=== PATIENT | male | born 1990 | race Caucasian/White ===

== ENCOUNTER 2019-12-10 17:28 | Inpatient (IN) ==
[2019-12-10] MEDS ORDERED: 0.9 % Sodium Chloride 1,000 ML IV ONE (21:26)
[2019-12-11] MEDS ORDERED: Naloxone 0.4 MG/ML INJ IVP PRN (00:41)
[2019-12-11] MEDS ORDERED: 0.9 % Sodium Chloride 1,000 ML IVC SCH (00:45)
[2019-12-11] MEDS ORDERED: Acetaminophen 325 MG TABLET PO PRN ×2 (00:46→01:04)
[2019-12-11] MEDS ORDERED: *HR* FentaNYL (PF) 100 MCG/2 ML VIAL IVP STA (01:02)
[2019-12-11] MEDS ORDERED: Calcium Gluconate 2,000 MG in D5% in Water 100 ML IVPB ONE (01:12)
[2019-12-11] MEDS: 0.9 % Sodium Chloride 1,000 ML IVC SCH ×2 (01:23→08:02)
[2019-12-11] MEDS: Calcium Gluconate 1gm/50mL 1 GM/50 ML BAG IVPB SCH ×2 (01:53→02:55)
[2019-12-11 04:02] LABS: Basophils % 0.1 %; Eosinophils # 0.1 K/mcL (0.0-0.6); Eosinophils % 0.5 %; Hematocrit 36.9 % (37.5-50.1); Hemoglobin 12.8 g/dL (12.9-16.9); Immature Granulocytes % 0.3 % (0-4); Lymphocytes # 2.9 K/mcL (0.6-4.6); Lymphocytes % 25.5 %; Mean Corpuscular HGB Conc 34.7 g/dL (31.6-35.5); Mean Corpuscular Hemoglobin 34.1 pg (28.0-33.3); Mean Corpuscular Volume 98.4 fL (83.0-100.0); Mean Platelet Volume 9.9 fL (9.4-12.4); Monocytes # 1.3 K/mcL (0.0-1.3); Monocytes % 11.4 %; Neutrophils # 7.2 K/mcL (1.6-8.9); Platelet Count 176 K/mcL (140-400); Red Blood Count 3.75 M/mcL (4.19-5.50); Red Cell Distribution Width 12.3 % (11.5-14.5); Segmented Neutrophils % 62.2 %; White Blood Count 11.5 K/mcL (4.3-11.1)
[2019-12-11 04:29] LABS: Phosphorous 2.5 mg/dL (2.7-4.5)
[2019-12-11 04:43] LABS: BUN/Creatinine Ratio 15 (6-26); Blood Urea Nitrogen 13 mg/dL (6-20); Calcium 8.3 mg/dL (8.6-10.3); Carbon Dioxide 20 mEq/L (23-29); Chloride 113 mEq/L (98-107); Creatine Kinase 14882 Units/L (30-223); Glucose 123 mg/dL (70-105); Osmolality,Calculated 287 (280-300); Potassium 3.4 mEq/L (3.5-5.1); Sodium 138 mEq/L (136-145); eGFR For African Americans > 60 (> 60); eGFR For Non-African Americans > 60 (> 60)
[2019-12-11] MEDS: *HR* FentaNYL (PF) 100 MCG/2 ML VIAL IVP PRN ×2 (08:09→15:32)
[2019-12-11] MEDS: Nicotine 14 MG PATCH.TD24 TD SCH (21:49)
[2019-12-11] MEDS: QUEtiapine Fumarate 100 MG TABLET PO SCH (21:49)
[2019-12-12 01:23] LABS: Basophils % 0.3 %; Eosinophils # 0.1 K/mcL (0.0-0.6); Eosinophils % 1.3 %; Hemoglobin 12.2 g/dL (12.9-16.9); Immature Granulocytes % 0.2 % (0-4); Lymphocytes % 42.6 %; Mean Corpuscular HGB Conc 33.9 g/dL (31.6-35.5); Mean Corpuscular Hemoglobin 33.8 pg (28.0-33.3); Mean Corpuscular Volume 99.7 fL (83.0-100.0); Mean Platelet Volume 10.6 fL (9.4-12.4); Monocytes # 1.1 K/mcL (0.0-1.3); Monocytes % 11.4 %; Neutrophils # 4.2 K/mcL (1.6-8.9); Platelet Count 161 K/mcL (140-400); Red Blood Count 3.61 M/mcL (4.19-5.50); Red Cell Distribution Width 12.4 % (11.5-14.5); Segmented Neutrophils % 44.2 %; White Blood Count 9.4 K/mcL (4.3-11.1)
[2019-12-12 01:41] LABS: Magnesium 1.7 mg/dL (1.6-2.6); Phosphorous 2.9 mg/dL (2.7-4.5)
[2019-12-12 02:00] LABS: Alanine Aminotransferase 84 Units/L (7-52); Albumin 3.4 g/dL (3.5-5.7); Albumin/Globulin Ratio 2.1 (1.1-2.2); Alkaline Phosphatase 39 Units/L (34-104); Aspartate Amino Transferase 155 Units/L (13-39); BUN/Creatinine Ratio 13 (6-26); Bilirubin,Total 0.4 mg/dL (0.3-1.0); Blood Urea Nitrogen 12 mg/dL (6-20); Calcium 8.3 mg/dL (8.6-10.3); Carbon Dioxide 24 mEq/L (23-29); Chloride 105 mEq/L (98-107); Creatine Kinase 8625 Units/L (30-223); Globulin 1.6 g/dL (2.4-3.5); Glucose 125 mg/dL (70-105); Osmolality,Calculated 287 (280-300); Potassium 3.4 mEq/L (3.5-5.1); Sodium 138 mEq/L (136-145); eGFR For African Americans > 60 (> 60); eGFR For Non-African Americans > 60 (> 60)
[2019-12-12] MEDS ORDERED: 0.9 % Sodium Chloride w KCl 40 MEQ/1,000 ML MLS IVC SCH (07:30)
[2019-12-12 09:37] LABS: Hepatitis B Surface Antigen Nonreactive (Nonreactive)
[2019-12-12 10:06] LABS: Hepatitis C Virus Antibody Nonreactive (Nonreactive)
[2019-12-12 10:07] LABS: Hepatitis B Core IgM Nonreactive (Nonreactive)
[2019-12-12 10:08] LABS: Hepatitis A Antibody IgM Nonreactive (Nonreactive)
[2019-12-12] MEDS: QUEtiapine Fumarate 100 MG TABLET PO SCH (22:05)
[2019-12-12] MEDS: Nicotine 14 MG PATCH.TD24 TD SCH (22:05)
[2019-12-13 03:33] LABS: BUN/Creatinine Ratio 22 (6-26); Blood Urea Nitrogen 15 mg/dL (6-20); Calcium 9.3 mg/dL (8.6-10.3); Carbon Dioxide 28 mEq/L (23-29); Chloride 104 mEq/L (98-107); Glucose 100 mg/dL (70-105); Magnesium 1.9 mg/dL (1.6-2.6); Osmolality,Calculated 287 (280-300); Phosphorous 4.4 mg/dL (2.7-4.5); Potassium 3.7 mEq/L (3.5-5.1); Sodium 138 mEq/L (136-145); eGFR For African Americans > 60 (> 60); eGFR For Non-African Americans > 60 (> 60)
[2019-12-13] MEDS: Gabapentin 300 MG CAPSULE PO SCH ×3 (12:17→19:54)
[2019-12-13] MEDS: Nicotine 14 MG PATCH.TD24 TD SCH (22:23)
[2019-12-13] MEDS: QUEtiapine Fumarate 100 MG TABLET PO SCH (22:23)
[2019-12-14] MEDS: Gabapentin 300 MG CAPSULE PO SCH ×3 (08:24→22:35)
[2019-12-14] MEDS: *HR* FentaNYL (PF) 100 MCG/2 ML VIAL IVP PRN (12:53)
[2019-12-14] MEDS: Nicotine 14 MG PATCH.TD24 TD SCH (22:34)
[2019-12-14] MEDS: QUEtiapine Fumarate 100 MG TABLET PO SCH (22:35)
[2019-12-15 08:22] LABS: Hematocrit 44.5 % (37.5-50.1); Mean Corpuscular HGB Conc 35.3 g/dL (31.6-35.5); Mean Corpuscular Hemoglobin 34.1 pg (28.0-33.3); Mean Corpuscular Volume 96.7 fL (83.0-100.0); Platelet Count 207 K/mcL (140-400); Red Cell Distribution Width 11.9 % (11.5-14.5); White Blood Count 6.6 K/mcL (4.3-11.1)
[2019-12-15 08:23] LABS: Hemoglobin 15.7 g/dL (12.9-16.9)
[2019-12-15 08:40] LABS: BUN/Creatinine Ratio 18 (6-26); Blood Urea Nitrogen 17 mg/dL (6-20); Calcium 9.4 mg/dL (8.6-10.3); Carbon Dioxide 31 mEq/L (23-29); Chloride 102 mEq/L (98-107); Glucose 101 mg/dL (70-105); Osmolality,Calculated 292 (280-300); Sodium 140 mEq/L (136-145); eGFR For African Americans > 60 (> 60); eGFR For Non-African Americans > 60 (> 60)
[2019-12-15] MEDS: Gabapentin 300 MG CAPSULE PO SCH ×2 (09:07→15:55)
[2019-12-15 14:48] VITALS: BP 129/65
[2019-12-15] MEDS ORDERED: FLU Vac QV 19-20 (6Month+)/PF 0.5 ML SYRINGE IM ONE (17:57)
== END 2019-12-15 17:00 | disposition home or self-care (01) | DRG 885 ==
LOC: EMEROOARM 17:28 → 2NENU 17:28 → SUATTDRO 22:40 → 2NENU 23:47 → SUATTDRO 12-12 16:18
PROVIDERS: ADMIT Internal Medicine; ATTEND Family Medicine

== ENCOUNTER 2021-08-25 21:58 | Inpatient (IN) ==
[2021-08-26] MEDS ORDERED: Ondansetron ODT 4 MG TAB.RAPDIS SL PRN (02:06)
[2021-08-26] MEDS ORDERED: Naloxone 0.4 MG/ML INJ IVP PRN (02:06)
[2021-08-26] MEDS ORDERED: Acetaminophen 325 MG TABLET PO PRN (02:06)
[2021-08-26] MEDS ORDERED: *HR* OxyCODONE Immed Rel 5 MG TABLET PO PRN (02:06)
[2021-08-26 04:30] LABS: Hematocrit 29.6 % (37.5-50.1); Hemoglobin 10.4 g/dL (12.9-16.9); Mean Corpuscular HGB Conc 35.1 g/dL (31.6-35.5); Mean Corpuscular Hemoglobin 32.2 pg (28.0-33.3); Mean Corpuscular Volume 91.6 fL (83.0-100.0); Mean Platelet Volume 9.6 fL (9.4-12.4); Platelet Count 284 K/mcL (140-400); Red Blood Count 3.23 M/mcL (4.19-5.50); Red Cell Distribution Width 12.4 % (11.5-14.5); White Blood Count 11.7 K/mcL (4.3-11.1)
[2021-08-26 04:46] LABS: Alanine Aminotransferase 28 Units/L (7-52); Albumin 2.3 g/dL (3.5-5.7); Albumin/Globulin Ratio 0.9 (1.1-2.2); Alkaline Phosphatase 46 Units/L (34-104); Aspartate Amino Transferase 20 Units/L (13-39); BUN/Creatinine Ratio 12 (6-26); Bilirubin,Total 0.9 mg/dL (0.3-1.0); Blood Urea Nitrogen 7 mg/dL (6-20); Calcium 7.2 mg/dL (8.6-10.3); Carbon Dioxide 32 mEq/L (23-29); Chloride 93 mEq/L (98-107); Globulin 2.6 g/dL (2.4-3.5); Glucose 137 mg/dL (70-105); Lactate Dehydrogenase 100 Units/L (140-271); Magnesium 2.1 mg/dL (1.6-2.6); Osmolality,Calculated 272 (280-300); Phosphorous 2.6 mg/dL (2.7-4.5); Potassium 2.7 mEq/L (3.5-5.1); Sodium 131 mEq/L (136-145); Total Protein 4.9 g/dL (6.4-8.9); eGFR For African Americans > 60 (> 60); eGFR For Non-African Americans > 60 (> 60)
[2021-08-26] MEDS ORDERED: *HR* Heparin 5,000 UNIT/ML VIAL SQ SCH (06:00)
[2021-08-26] MEDS ORDERED: Potassium Chloride 40 MEQ, Lidocaine 1% 2 ML in 0.9 % Sodium Chloride 500 ML IVPB ONE (06:31)
[2021-08-26 07:11] LABS: Adenovirus F 40/41 PCR Not detected (Not detect); Astrovirus PCR Not detected (Not detect); C.difficile Toxin A/B Gene PCR Not detected (Not detect); Campylobacter by PCR Not detected (Not detect); Cryptosporidium by PCR Not detected (Not detect); Cyclospora cayetanensis PCR Not detected (Not detect); E. coli O157 by PCR Not detected (Not detect); Entamoeba histolytica PCR Not detected (Not detect); Enteroaggregative E.coli(EAEC) Not detected (Not detect); Enteropathogenic E.coli(EPEC) Not detected (Not detect); Enterotoxigenic E.coli (ETEC) Not detected (Not detect); Giardia lamblia PCR Not detected (Not detect); Norovirus GI/GII PCR Not detected (Not detect); Plesiomonas shigelloides PCR Not detected (Not detect); Rotavirus A PCR Not detected (Not detect); Salmonella PCR Not detected (Not detect); Sapovirus PCR Not detected (Not detect); Shig/EnteroinvasiveE coli EIEC Not detected (Not detect); Shigalike tox-prod E coli STEC Not detected (Not detect); Vibrio PCR Not detected (Not detect); Vibrio cholerae PCR Not detected (Not detect); Yersinia enterocolitica PCR Not detected (Not detect)
[2021-08-26] MEDS ORDERED: Gadolinium Contrast Agent (WT Based) IV PRN ×2 (07:14→10:45)
[2021-08-26] MEDS ORDERED: 0.9 % Sodium Chloride w KCl 20 MEQ/1,000 ML MLS IVC SCH (07:15)
[2021-08-26 07:37] LABS: Lymphocytes # 1.4 K/mcL (0.6-4.6); Monocytes # 0.5 K/mcL (0.0-1.3); Neutrophils # 9.8 K/mcL (1.6-8.9); Platelet Estimate Normal (Normal)
[2021-08-26] MEDS ORDERED: 0.9 % Sodium Chloride 1,000 ML IVC ONE (10:02)
[2021-08-26 11:21] LABS: Hematocrit 29.9 % (37.5-50.1); Hemoglobin 10.2 g/dL (12.9-16.9)
[2021-08-26] MEDS: *HR* OxyCODONE Immed Rel 5 MG TABLET PO PRN (12:09)
[2021-08-26 12:17] LABS: Hepatitis B Surface Antigen Nonreactive (Nonreactive)
[2021-08-26 12:46] LABS: Hepatitis C Virus Antibody Nonreactive (Nonreactive)
[2021-08-26 12:49] LABS: Hepatitis A Antibody IgM Nonreactive (Nonreactive)
[2021-08-26] MEDS: 0.9 % Sodium Chloride w KCl 20 MEQ/1,000 ML MLS IVC SCH (14:06)
[2021-08-26] MEDS ORDERED: *HR* OxyCODONE Immed Rel 5 MG TABLET PO ONE (20:15)
[2021-08-27] MEDS: *HR* OxyCODONE Immed Rel 5 MG TABLET PO PRN ×4 (02:21→23:05)
[2021-08-27 06:07] LABS: Hematocrit 28.9 % (37.5-50.1); Hemoglobin 9.7 g/dL (12.9-16.9); Mean Corpuscular HGB Conc 33.6 g/dL (31.6-35.5); Mean Corpuscular Hemoglobin 31.1 pg (28.0-33.3); Mean Corpuscular Volume 92.6 fL (83.0-100.0); Mean Platelet Volume 9.2 fL (9.4-12.4); Monocytes # 1.1 K/mcL (0.0-1.3); Platelet Count 261 K/mcL (140-400); Red Blood Count 3.12 M/mcL (4.19-5.50); Red Cell Distribution Width 12.4 % (11.5-14.5); White Blood Count 7.6 K/mcL (4.3-11.1)
[2021-08-27 06:28] LABS: Alanine Aminotransferase 29 Units/L (7-52); Albumin 2.2 g/dL (3.5-5.7); Albumin/Globulin Ratio 0.9 (1.1-2.2); Alkaline Phosphatase 43 Units/L (34-104); Aspartate Amino Transferase 25 Units/L (13-39); BUN/Creatinine Ratio 6 (6-26); Bilirubin,Direct 0.3 mg/dL (0.0-0.2); Bilirubin,Indirect 0.5 mg/dL (0.0-1.0); Bilirubin,Total 0.8 mg/dL (0.3-1.0); Blood Urea Nitrogen 3 mg/dL (6-20); Carbon Dioxide 29 mEq/L (23-29); Chloride 95 mEq/L (98-107); Globulin 2.5 g/dL (2.4-3.5); Glucose 107 mg/dL (70-105); Magnesium 1.8 mg/dL (1.6-2.6); Osmolality,Calculated 269 (280-300); Potassium 2.8 mEq/L (3.5-5.1); Sodium 131 mEq/L (136-145); Total Protein 4.7 g/dL (6.4-8.9); eGFR For African Americans > 60 (> 60); eGFR For Non-African Americans > 60 (> 60)
[2021-08-27 06:43] LABS: Lymphocytes # 1.2 K/mcL (0.6-4.6); Neutrophils # 5.3 K/mcL (1.6-8.9)
[2021-08-27 06:44] LABS: Anisocytosis 1+ (Not Present); Platelet Estimate Normal (Normal)
[2021-08-27] MEDS: cefTRIAXone 2,000 MG in 0.9 % Sodium Chloride Mini Bag 100 ML IVPB SCH (08:26)
[2021-08-27 08:58] LABS: C-Reactive Protein 224 mg/L (Less than 10)
[2021-08-27] MEDS ORDERED: Morphine Sulfate 2 MG/ML SYRINGE IVP PRN (09:49)
[2021-08-27] MEDS ORDERED: Simethicone 80 MG TAB.CHEW PO PRN (12:26)
[2021-08-27] MEDS: MetroNIDAZOLE 500 MG/100 ML 500 MG/100 ML BAG IVPB SCH ×3 (12:56→23:04)
[2021-08-27] MEDS: Morphine Sulfate 2 MG/ML SYRINGE IVP PRN ×2 (16:52→21:16)
[2021-08-27] MEDS: 0.9 % Sodium Chloride w KCl 20 MEQ/1,000 ML MLS IVC SCH (19:14)
[2021-08-28] MEDS: Morphine Sulfate 2 MG/ML SYRINGE IVP PRN (02:14)
[2021-08-28] MEDS ORDERED: 0.9 % Sodium Chloride 1,000 ML IVC ONE (04:13)
[2021-08-28] MEDS ORDERED: Ketorolac 30 MG/ML VIAL IVP ONE ×2 (04:15→10:06)
[2021-08-28 05:33] LABS: Hematocrit 27.8 % (37.5-50.1); Hemoglobin 9.3 g/dL (12.9-16.9); Mean Corpuscular HGB Conc 33.5 g/dL (31.6-35.5); Mean Corpuscular Hemoglobin 31.3 pg (28.0-33.3); Mean Corpuscular Volume 93.6 fL (83.0-100.0); Mean Platelet Volume 9.1 fL (9.4-12.4); Platelet Count 229 K/mcL (140-400); Red Blood Count 2.97 M/mcL (4.19-5.50); Red Cell Distribution Width 12.7 % (11.5-14.5); White Blood Count 7.6 K/mcL (4.3-11.1)
[2021-08-28 05:53] LABS: Alanine Aminotransferase 27 Units/L (7-52); Albumin 2.1 g/dL (3.5-5.7); Albumin/Globulin Ratio 0.9 (1.1-2.2); Alkaline Phosphatase 44 Units/L (34-104); Aspartate Amino Transferase 20 Units/L (13-39); BUN/Creatinine Ratio 7 (6-26); Bilirubin,Direct 0.3 mg/dL (0.0-0.2); Bilirubin,Indirect 0.4 mg/dL (0.0-1.0); Bilirubin,Total 0.7 mg/dL (0.3-1.0); Blood Urea Nitrogen 4 mg/dL (6-20); Calcium 7.1 mg/dL (8.6-10.3); Carbon Dioxide 32 mEq/L (23-29); Chloride 98 mEq/L (98-107); Globulin 2.4 g/dL (2.4-3.5); Glucose 140 mg/dL (70-105); Magnesium 1.7 mg/dL (1.6-2.6); Osmolality,Calculated 279 (280-300); Potassium 2.9 mEq/L (3.5-5.1); Sodium 135 mEq/L (136-145); Total Protein 4.5 g/dL (6.4-8.9); eGFR For African Americans > 60 (> 60); eGFR For Non-African Americans > 60 (> 60)
[2021-08-28 06:02] LABS: Toxic Granulation Present (Not Present)
[2021-08-28 06:03] LABS: Lymphocytes # 1.1 K/mcL (0.6-4.6); Monocytes # 0.5 K/mcL (0.0-1.3); Neutrophils # 6.1 K/mcL (1.6-8.9)
[2021-08-28 06:04] LABS: Anisocytosis 1+ (Not Present); Polychromasia 1+ (Not Present)
[2021-08-28 06:07] LABS: Platelet Estimate Normal (Normal)
[2021-08-28 06:17] LABS: Folate 7.1 ng/mL (3.0-16.0)
[2021-08-28 06:20] LABS: Ferritin 1019 ng/mL (20-250); Iron < 10 mcg/dL (65-175); Transferrin < 75 mg/dL (203-362)
[2021-08-28] MEDS: cefTRIAXone 2,000 MG in 0.9 % Sodium Chloride Mini Bag 100 ML IVPB SCH (07:50)
[2021-08-28] MEDS: MetroNIDAZOLE 500 MG/100 ML 500 MG/100 ML BAG IVPB SCH ×2 (07:51→16:46)
[2021-08-28] MEDS ORDERED: Acetaminophen IV 1,000 MG/100 ML BAG IVPB ONE ×2 (08:00→20:19)
[2021-08-28] MEDS: 0.9 % Sodium Chloride w KCl 40 MEQ/1,000 ML MLS IVC SCH ×2 (08:40→20:29)
[2021-08-28] MEDS ORDERED: methylPREDNISolone 125 MG/2 ML VIAL IVP ONE (11:18)
[2021-08-28] MEDS ORDERED: Isovue-370 500 ML BOTTLE IVP ONE (17:03)
[2021-08-28] MEDS: 0.9 % Sodium Chloride w KCl 20 MEQ/1,000 ML MLS IVC SCH ×2 (23:00→23:01)
[2021-08-29] MEDS: MetroNIDAZOLE 500 MG/100 ML 500 MG/100 ML BAG IVPB SCH ×2 (00:14→07:58)
[2021-08-29 01:27] LABS: Hematocrit 29.2 % (37.5-50.1); Hemoglobin 9.7 g/dL (12.9-16.9); Mean Corpuscular HGB Conc 33.2 g/dL (31.6-35.5); Mean Corpuscular Hemoglobin 30.7 pg (28.0-33.3); Mean Corpuscular Volume 92.4 fL (83.0-100.0); Mean Platelet Volume 9.4 fL (9.4-12.4); Platelet Count 246 K/mcL (140-400); Red Blood Count 3.16 M/mcL (4.19-5.50); Red Cell Distribution Width 12.6 % (11.5-14.5)
[2021-08-29 01:46] LABS: Alanine Aminotransferase 20 Units/L (7-52); Albumin 1.9 g/dL (3.5-5.7); Albumin/Globulin Ratio 0.8 (1.1-2.2); Alkaline Phosphatase 46 Units/L (34-104); Aspartate Amino Transferase 10 Units/L (13-39); BUN/Creatinine Ratio 19 (6-26); Bilirubin,Direct 0.1 mg/dL (0.0-0.2); Bilirubin,Indirect 0.2 mg/dL (0.0-1.0); Bilirubin,Total 0.3 mg/dL (0.3-1.0); Blood Urea Nitrogen 9 mg/dL (6-20); C-Reactive Protein 219 mg/L (Less than 10); Calcium 6.9 mg/dL (8.6-10.3); Carbon Dioxide 24 mEq/L (23-29); Chloride 105 mEq/L (98-107); Globulin 2.5 g/dL (2.4-3.5); Glucose 182 mg/dL (70-105); Lipase 6 Units/L (11-82); Magnesium 1.7 mg/dL (1.6-2.6); Osmolality,Calculated 283 (280-300); Potassium 3.8 mEq/L (3.5-5.1); Sodium 135 mEq/L (136-145); Total Protein 4.4 g/dL (6.4-8.9); eGFR For African Americans > 60 (> 60); eGFR For Non-African Americans > 60 (> 60)
[2021-08-29 01:56] LABS: Anisocytosis 1+ (Not Present); Lymphocytes # 0.2 K/mcL (0.6-4.6); Neutrophils # 8.8 K/mcL (1.6-8.9); Platelet Estimate Normal (Normal); Toxic Granulation Present (Not Present); Toxic Vacuolation Present (Not Present)
[2021-08-29] MEDS: 0.9 % Sodium Chloride w KCl 40 MEQ/1,000 ML MLS IVC SCH (04:50)
[2021-08-29] MEDS: *HR* OxyCODONE Immed Rel 5 MG TABLET PO PRN (07:58)
[2021-08-29] MEDS ORDERED: methylPREDNISolone 125 MG/2 ML VIAL IVP SCH (08:00)
[2021-08-29 08:15] LABS: Adenovirus F 40/41 PCR Not detected (Not detect); Astrovirus PCR Not detected (Not detect); C.difficile Toxin A/B Gene PCR Not detected (Not detect); Campylobacter by PCR Not detected (Not detect); Cryptosporidium by PCR Not detected (Not detect); Cyclospora cayetanensis PCR Not detected (Not detect); E. coli O157 by PCR Not detected (Not detect); Entamoeba histolytica PCR Not detected (Not detect); Enteroaggregative E.coli(EAEC) Not detected (Not detect); Enteropathogenic E.coli(EPEC) Not detected (Not detect); Enterotoxigenic E.coli (ETEC) Not detected (Not detect); Giardia lamblia PCR Not detected (Not detect); Norovirus GI/GII PCR Not detected (Not detect); Plesiomonas shigelloides PCR Not detected (Not detect); Rotavirus A PCR Not detected (Not detect); Salmonella PCR Not detected (Not detect); Sapovirus PCR Not detected (Not detect); Shig/EnteroinvasiveE coli EIEC Not detected (Not detect); Shigalike tox-prod E coli STEC Not detected (Not detect); Vibrio PCR Not detected (Not detect); Vibrio cholerae PCR Not detected (Not detect); Yersinia enterocolitica PCR Not detected (Not detect)
[2021-08-29] MEDS: Morphine Sulfate 2 MG/ML SYRINGE IVP PRN (10:04)
[2021-08-29 11:30] VITALS: BP 100/63; PULSE 90; TEMP 97.5; O2SAT 97
[2021-08-29] MEDS ORDERED: *HR* OxyCODONE/APAP 10/325 TABLET PO ONE (14:26)
[2021-08-31 10:51] LABS: HSV 1 Glycoprotein G IgG 0.18 IV (<=0.89); HSV 2 Glycoprotein G IgG 6.69 IV (<=0.89)
== END 2021-08-29 18:13 | disposition home or self-care (01) | DRG 871 ==
LOC: 4WAOSI → SUATTDRO 08-26 01:11 → 3BNU 08-28 16:12
PROVIDERS: ADMIT Internal Medicine; ATTEND Pharmacist

== ENCOUNTER 2022-01-31 01:38 | Inpatient (IN) ==
[2022-01-31 02:49] LABS: Influenza A PCR Negative (Negative); Influenza B PCR Negative (Negative); Resp. Syncytial Virus PCR Negative (Negative); SARS-CoV-2 by PCR (In House) Negative (Negative)
[2022-01-31] MEDS ORDERED: haloperidoL 5 MG TABLET PO PRN (03:46)
[2022-01-31] MEDS ORDERED: Acetaminophen 325 MG TABLET PO PRN (03:46)
[2022-01-31] MEDS ORDERED: *HR* LORazepam 1 MG TABLET PO PRN (04:00)
[2022-01-31] MEDS ORDERED: Haloperidol Lactate 5 MG/ML VIAL IM PRN (04:00)
[2022-01-31] MEDS ORDERED: *HR* LORazepam 2 MG/ML VIAL IM PRN (04:00)
[2022-01-31] MEDS ORDERED: Mag Hydrox/Al Hydrox/Simeth 30 ML UDC PO PRN (08:07)
[2022-01-31] MEDS ORDERED: MOM Conc 10 ML UD.LIQ PO PRN (08:07)
[2022-01-31] MEDS: OLANZapine 10 MG TAB.RAPDIS PO SCH (21:44)
[2022-01-31] MEDS: OXcarbazepine 150 MG TABLET PO SCH (21:44)
[2022-02-01] MEDS: OXcarbazepine 150 MG TABLET PO SCH ×2 (10:22→20:23)
[2022-02-01] MEDS: OLANZapine 10 MG TAB.RAPDIS PO SCH (20:23)
[2022-02-01] MEDS: traZODone 50 MG TABLET PO PRN (20:24)
[2022-02-02] MEDS: OXcarbazepine 150 MG TABLET PO SCH ×2 (08:18→20:49)
[2022-02-02] MEDS: hydrOXYzine pamoate 25 MG CAPSULE PO PRN (10:21)
[2022-02-02] MEDS: Nicotine 2 MG GUM BC PRN (12:34)
[2022-02-02] MEDS: traZODone 50 MG TABLET PO PRN (20:49)
[2022-02-02] MEDS: OLANZapine 10 MG TAB.RAPDIS PO SCH (20:49)
[2022-02-03] MEDS: OXcarbazepine 150 MG TABLET PO SCH ×2 (08:12→20:19)
[2022-02-03] MEDS: Nicotine 2 MG GUM BC PRN (12:42)
[2022-02-03] MEDS: OLANZapine 10 MG TAB.RAPDIS PO SCH (20:19)
[2022-02-03] MEDS: hydrOXYzine pamoate 25 MG CAPSULE PO PRN (20:19)
[2022-02-03] MEDS: OLANZapine 5 MG TAB.RAPDIS PO SCH (20:19)
[2022-02-03] MEDS: traZODone 50 MG TABLET PO PRN (20:19)
[2022-02-04] MEDS: OXcarbazepine 150 MG TABLET PO SCH ×2 (09:29→21:10)
[2022-02-04] MEDS: Nicotine 2 MG GUM BC PRN (11:27)
[2022-02-04] MEDS: OLANZapine 5 MG TAB.RAPDIS PO SCH (21:10)
[2022-02-04] MEDS: traZODone 50 MG TABLET PO PRN (21:10)
[2022-02-04] MEDS: OLANZapine 10 MG TAB.RAPDIS PO SCH (21:10)
[2022-02-05] MEDS: OXcarbazepine 150 MG TABLET PO SCH ×2 (08:35→20:31)
[2022-02-05] MEDS: OLANZapine 10 MG TAB.RAPDIS PO SCH (20:32)
[2022-02-06] MEDS: OXcarbazepine 150 MG TABLET PO SCH ×2 (08:27→20:33)
[2022-02-06] MEDS ORDERED: OLANZapine 10 MG TAB.RAPDIS PO SCH (09:00)
[2022-02-06] MEDS: Nicotine 2 MG GUM BC PRN (17:36)
[2022-02-06] MEDS: traZODone 50 MG TABLET PO PRN (20:33)
[2022-02-06] MEDS: OLANZapine 10 MG TAB.RAPDIS PO SCH (20:33)
[2022-02-07] MEDS: OXcarbazepine 150 MG TABLET PO SCH ×2 (08:46→20:49)
[2022-02-07] MEDS: Nicotine 2 MG GUM BC PRN (17:13)
[2022-02-07] MEDS: OLANZapine 10 MG TAB.RAPDIS PO SCH (20:49)
[2022-02-08] MEDS: OXcarbazepine 150 MG TABLET PO SCH ×2 (08:39→20:06)
[2022-02-08] MEDS: OLANZapine 10 MG TAB.RAPDIS PO SCH (20:06)
[2022-02-09] MEDS: OXcarbazepine 150 MG TABLET PO SCH (08:34)
[2022-02-09 08:46] VITALS: BP 111/77; PULSE 87; TEMP 98.2; O2SAT 97
== END 2022-02-09 13:40 | disposition home or self-care (01) | DRG 885 ==
LOC: EMEROOARM 01:38 → 1ANU 03:44
PROVIDERS: ADMIT Psychiatry & Neurology Psychiatry; ATTEND Psychiatry & Neurology Psychiatry